=== PATIENT | male | born 1975 | race Caucasian/White ===

== ENCOUNTER 2016-10-08 14:18 | Inpatient (IN) | payer BC, OTHER ==
[2016-10-08] MEDS ORDERED: NS 0.9% 1000 ML* 1,000 ML IV ONE (14:59)
[2016-10-08] MEDS ORDERED: Ondansetron INJ* 2 MG/ML VIAL IV ONE ×2 (14:59→16:40)
[2016-10-08] MEDS ORDERED: Morphine INJ* 4 MG/ML 1 ML CARPUJECT IV ONE ×2 (14:59→16:40)
[2016-10-08 15:14] LABS: Hematocrit 54 % (42-52); Hemoglobin 18.9 g/dl (14.0-18.0); Mean Corpuscular HGB Conc 35 g/dl (31-36); Mean Corpuscular Hemoglobin 31 pg (27-31); Mean Corpuscular Volume 89 fL (80-94); Mean Platelet Volume 8 um3 (7.4-10.4); Red Blood Count 6.08 10^6/ul (4.0-5.4); Red Cell Distribution Width 13 % (10.5-15); White Blood Count 20.5 10^3/ul (3.5-10.8)
[2016-10-08 15:15] LABS: Add Diff/Slide Review? Slide Review Added; Comments Flag Yes
[2016-10-08 15:28] LABS: Albumin 4.9 g/dL (3.2-5.2); C Reactive Protein 2.18 mg/L (< 5.00); Calcium 9.7 mg/dL (8.6-10.3); EGFR African American 76.2 (>60); EGFR Non-African American 59.3 (>60); Globulin 3.4 g/dL (2-4); Magnesium 1.7 mg/dL (1.9-2.7); Potassium 4.8 mmol/L (3.5-5.0); Total Bilirubin 0.9 mg/dL (0.2-1.0); Total Protein 8.3 g/dL (6.4-8.9)
[2016-10-08] MEDS ORDERED: Magnesium Oxide TAB* 400 MG PO ONE (15:35)
--- NOTE | 2016-10-08 15:47 | RAD ---
INDICATION: Abdominal pain. Fever. Chills. COMPARISON: None TECHNIQUE: Erect and supine views of the abdomen are submitted. FINDINGS: Bones: There are no acute bony findings. Soft tissues: The soft tissues appear normal. The psoas margins are sharp. Bowel gas pattern: Normal Calcifications: There are no abnormal calcifications. Other: None IMPRESSION: NO ACUTE DIAGNOSTIC FINDINGS.
[2016-10-08 16:02] LABS: Immature Granulocytes 12 % (0-9); Neutrophil % 83 % (38-83); Reactive Lymph % 2 % (0-6)
[2016-10-08 16:03] LABS: RBC Morphology Normal (Normal)
[2016-10-08] MEDS ORDERED: Iodixanol* (CONTRAST) 320 MG/ML 100 ML SDV IV ONE (16:15)
[2016-10-08] MEDS ORDERED: Acetaminophen TAB* 325 MG PO PRN (16:17)
[2016-10-08] MEDS ORDERED: NS 0.9% 1000 ML* 2,000 ML IV ONE ×2 (16:17→16:40)
[2016-10-08] MEDS ORDERED: Ondansetron INJ* 2 MG/ML VIAL ONE (16:20)
[2016-10-08] MEDS ORDERED: Morphine INJ* 4 MG/ML 1 ML CARPUJECT ONE (16:20)
[2016-10-08] MEDS: Ondansetron INJ* 2 MG/ML VIAL IV PRN ×2 (16:24→22:02)
--- NOTE | 2016-10-08 17:05 | RAD ---
INDICATION: Abdominal pain. COMPARISON: Comparison is made with an abdominal series of the same date. TECHNIQUE: A CT scan of the abdomen and pelvis was performed with intravenous and without oral contrast following intravenous injection of 94 ml of Visipaque 320 nonionic contrast. Contiguous axial sections were obtained from the lung bases through the symphysis pubis. Images were reconstructed in the coronal and sagittal planes. FINDINGS: There is mild dependent bilateral lower lobe subsegmental atelectasis. No pleural effusion is present. The liver and spleen are within normal limits in size without significant focal abnormality. No calcified gallstones are seen. The pancreas appears to be within normal limits in size. The kidneys and adrenal glands are normal in size. No hydronephrosis is seen. No significant focal renal abnormality is seen. The aorta is normal in caliber and demonstrates homogeneous contrast opacification. No significant enlarged retroperitoneal lymph nodes are seen. The stomach, small and large bowel appear nondistended. The appendix is not visualized. There is no evidence for diverticulitis or colitis. No free intraperitoneal air or fluid is seen. No significant focal osseous abnormality is seen. IMPRESSION: NO EVIDENCE FOR ACUTE FINDING OR CAUSE FOR THE PATIENT'S ABDOMINAL PAIN IS SEEN.
[2016-10-08] MEDS ORDERED: Morphine INJ* 4 MG/ML 1 ML CARPUJECT IV PRN (17:16)
--- NOTE | 2016-10-08 17:16 | ED ---
Rishi Stephens Billy, scribed for Kenyon Pryor MD on 10/08/16 at 1526 . Abdominal Pain/Male - HPI Summary HPI Summary: Patient is a 41 year-old male coming to [facility] presenting with constant abdominal cramping since 0830 this morning. Severity 06/16. He reports chills, N /V/D, chest pain, and diffuse myalgia. Nothing makes his symptoms better/worse. 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 Denies recent illness or antibiotics. - History of Current Complaint Chief Complaint: EDAbdPain Stated Complaint: CHEST PAIN Time Seen by Provider: 10/08/16 14:56 Hx Obtained From: Patient Onset/Duration: Gradual Onset, Lasting Hours, Still Present Timing: Constant Severity Initially: Moderate Severity Currently: Moderate Pain Intensity: 10 Pain Scale Used: 0-10 Numeric Radiates: No Character: Cramping Aggravating Factor(s): Nothing Alleviating Factor(s): Nothing Associated Signs And Symptoms: Positive: Chest Pain, Nausea, Vomiting, Diarrhea , Other - chills, myalgia. Negative: Fever - Allergies/Home Medications Allergies/Adverse Reactions: Allergies Allergy/AdvReac Type Severity Reaction Status Date / Time Penicillins Allergy Mild Rash Verified 11/11/14 20:48 Codeine AdvReac Mild GI Upset Verified 11/11/14 20:48 opiates Allergy GI Upset Uncoded 11/11/14 20:50 Home Medications: Home Medications Citalopram TAB* [CeleXA TAB*] 10 mg PO DAILY 10/08/16 [History Confirmed ] PMH/Surg Hx/FS Hx/Imm Hx Endocrine/Hematology History: Denies: Hx Diabetes Cardiovascular History: Denies: Hx Hypertension, Hx Pacemaker/ICD History: Denies: Hx Dialysis, Hx Renal Disease Musculoskeletal History: Reports: Hx Tendonitis - RT SHOULDER IN PAST AND R ELBOW Sensory History: Reports: Hx Contacts or Glasses - INST GLASSES DAY OF RO Denies: Hx Hearing Aid Opthamlomology History: Reports: Hx Contacts or Glasses - INST GLASSES DAY OF RO Neurological History: Reports: Hx Headaches - MORE RECENT FROM ACCIDENT, Hx Migraine - HEADACHE DAILY MIGRAINES ONCE A MONTH Psychiatric History: Reports: Hx Depression - OK W/O MEDS Denies: Hx Panic Disorder - Surgical History Surgery Procedure, Year, and Place: 1989 PITUTARY TUMOR REMOVED [place],1992 APPY [id number] - 4 RIGHT- 1 LEFT KNEE SURGERIES [facility] [place], 1999 TONSILECTOMY [place], 2010 RT SHOULDER [facility] [place],2010 UTERINE ABLATION, [id number] HYSTERECTOMY AND OOPHARECTOMY [facility], 2012 RT CARPAL TUNNEL Hx Anesthesia Reactions: Yes - NAUSEA HAD HAD IV MEDS AND PATCH WITH SUCCESS Infectious Disease History: No Infectious Disease History: Denies: Traveled Outside the [place] in Last 30 Days - Family History Known Family History: Positive: Other - cancer - Social History Alcohol Use: Occasionally Substance Use Type: Reports: None Smoking Status (MU): Former Smoker Review of Systems Positive: Chills. Negative: Fever Positive: Chest Pain Positive: Abdominal Pain, Vomiting, Diarrhea, Nausea Positive: Myalgia All Other Systems Reviewed And Are Negative: Yes Physical Exam Triage Information Reviewed: Yes Vital Signs On Initial Exam: Initial Vitals Temp Pulse Resp BP Pulse Ox 98.4 F 125 28 130/107 100 10/08/16 14:23 10/08/16 14:23 10/08/16 14:23 10/08/16 14:23 10/08/16 14:23 Vital Signs Reviewed: Yes - Erik Coma Scale Coma Scale Total: 15 Diagnostics - Vital Signs Vital Signs Temp Pulse Resp BP Pulse Ox 10/08/16 14:23 98.4 F 125 28 130/107 100 - Laboratory Lab Results: Lab Results 10/08/16 10/08/16 10/08/16 Range/Units 14:53 14:53 14:53 WBC 20.5 H (3.5-10.8) 10^3/ul RBC 6.08 H (4.0-5.4) 10^6/ul Hgb 18.9 H (14.0-18.0) g/dl Hct 54 H (42-52) % MCV 89 (80-94) fL MCH 31 (27-31) pg MCHC 35 (31-36) g/dl RDW 13 (10.5-15) % Plt Count 313 (150-450) 10^3/ul MPV 8 (7.4-10.4) um3 Immature Gran % (Auto) 12 H (0-9) % Neut % (Auto) 94.8 H (38-83) % Lymph % (Auto) 1.8 L (25-47) % [place] % (Auto) 2.9 (1-9) % Eos % (Auto) 0.3 (0-6) % Baso % (Auto) 0.2 (0-2) % Absolute Neuts (auto) 19.4 H (1.5-7.7) 10^3/ul Absolute Lymphs (auto) 0.4 L (1.0-4.8) 10^3/ul Absolute Monos (auto) 0.6 (0-0.8) 10^3/ul Absolute Eos (auto) 0.1 (0-0.6) 10^3/ul Absolute Basos (auto) 0 (0-0.2) 10^3/ul Absolute Nucleated RBC 0.01 10^3/ul Neutrophils % 83 (38-83) % Band Neutrophils % 12 H (0-8) % Lymphocytes % 2 L (25-47) % Reactive Lymphs % 2 (0-6) % Monocytes % 1 (0-13) % Nucleated RBC % 0 Normal RBC Morphology Normal (Normal) Sodium 136 (133-145) mmol/L Potassium 4.8 (3.5-5.0) mmol/L Chloride 100 L (101-111) mmol/L Carbon Dioxide 28 (22-32) mmol/L Anion Gap 8 (2-11) mmol/L BUN 20 (6-24) mg/dL Creatinine 1.33 H (0.67-1.17) mg/dL Est GFR ( Amer) 76.2 (>60) Est GFR (Non-Af Amer) 59.3 (>60) BUN/Creatinine Ratio 15.0 (8-20) Glucose 146 H (70-100) mg/dL Lactic Acid 2.2 H* (0.5-2.0) mmol/L Calcium 9.7 (8.6-10.3) mg/dL Magnesium 1.7 L (1.9-2.7) mg/dL Total Bilirubin 0.90 (0.2-1.0) mg/dL AST 25 (13-39) U/L ALT 23 (7-52) U/L Alkaline Phosphatase 55 (34-104) U/L C-Reactive Protein 2.18 (< 5.00) mg/L Total Protein 8.3 (6.4-8.9) g/dL Albumin 4.9 (3.2-5.2) g/dL Globulin 3.4 (2-4) g/dL Albumin/Globulin Ratio 1.4 (1-3) Amylase 37 (29-103) U/L Lipase 32 (11.0-82.0) U/L Result Diagrams: 10/08/16 14:53 10/08/16 14:53 Lab Statement: Any lab studies that have been ordered have been reviewed, and results considered in the medical decision making process. - Radiology abd xr Xray Interpretation: No Acute Changes Radiology Interpretation Completed By: Radiologist - EKG 1417 EKG Interpretation: sinus tachy 125 bpm, no ST elevation Abdominal Pain Fem Course/Dx - Course Assessment/Plan: Patient is a 41 year-old male coming to [facility] presenting with constant abdominal cramping since 0830 this morning. Severity 06/16. He reports chills, N/V/D, chest pain, and diffuse myalgia. Nothing makes his symptoms better/worse. 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 Denies recent illness or antibiotics. Blood worh shows WBCs 20.5 slightly increased H/H, increase creatinine of 1.33 , glucose 146 and lactic acid of 2.2. Initially patient in distress secondary to the above symptoms. He was started in IV fluids, Morphine for pain and Zofran for nausea. Patient was given additional 2 L of IV fluids since he became hypotensive. C diff is negative but fecal leukocytes are positive. I decide to do an Abdominal and pelvic CT since patient still w/ diffuse abdominal pain. Impression: NO EVIDENCE FOR ACUTE FINDING OR CAUSE FOR THE PATIENT'S ABDOMINAL PAIN IS. SEEN. I discuss my physical exam, findings and test results with Dr. Jay from the hospitalist services and she agrees to admit patient to his services. Patient is e alert and oriented x 3. hospitalist place patient in Cefepine and Flagyl. I also order a second IV access. Patient reports feeiling better. - Diagnoses Differential Diagnosis/HQI/PQRI: Constipation, Diverticulitis, Ischemic Bowel, Peptic Ulcer Disease Provider Diagnoses: Abdominal pain, Nausea vomiting and diarrhea - Provider Notifications Discussed Care Of Patient With: Dr. Jay (hospitalist) @ 0127: accepts admission. Dr. Ortiz (radiology) @ 2482: CT abd/pel reviewed and discussed. Discharge - Discharge Plan Condition: Stable Disposition: ADMITTED TO [facility] The documentation as recorded by the Rishi hernandez Billy accurately reflects the service I personally performed and the decisions made by me, Kenyon Pryor MD.
[2016-10-08] MEDS ORDERED: NS 0.9% 50 ML* 50 ML ONE (17:34)
[2016-10-08 17:57] LABS: Urine Bacteria Absent (Absent); Urine Bilirubin Negative (Negative); Urine Glucose Negative (Negative); Urine Nitrite Negative (Negative)
[2016-10-08] MEDS ORDERED: Cefepime(*) 2 GM in NS 0.9% 50 ML* 50 ML IVPB SCH (18:00)
--- NOTE | 2016-10-08 18:27 | RAD ---
INDICATION: Sepsis. COMPARISON: There is is made with a prior chest x-ray study from December 28, 2013. TECHNIQUE: A portable view of the chest was obtained. FINDINGS: Cardiac and mediastinal contours appear to be within normal limits. The lungs are clear. No pleural effusion is seen. IMPRESSION: NO EVIDENCE FOR ACUTE DISEASE.
[2016-10-08] MEDS: Pantoprazole IV* 40 MG IV SCH (18:35)
[2016-10-08] MEDS: NS 0.9% 1000 ML* 3,000 ML IV ONE ×4 (18:42→19:58)
[2016-10-08] MEDS: PROCHLORPERAZINE INJ 5 MG/ML 2 ML VIAL IV PRN (19:48)
[2016-10-08] MEDS: Cefepime(*) 2 GM in NS 0.9% 50 ML* 50 ML IVPB SCH (19:53)
[2016-10-08] MEDS: metroNIDAZOLE IV 500 MG/100ML* 500 MG/100 ML BAG IVPB SCH (20:56)
--- NOTE | 2016-10-08 21:08 | HP ---
HISTORY AND PHYSICAL: DATE OF ADMISSION: 10/08/16 PRIMARY CARE PROVIDER: Angelica Pichardo MD. ATTENDING PHYSICIAN WHILE IN THE HOSPITAL: Oziel Jay MD * (report dictated by Emiliano Milligan NP). CONSULTING SURGEON: Dr. Phoenix. CHIEF COMPLAINT: 1. Nausea. 2. Diarrhea. 3. Abdominal discomfort. HISTORY OF PRESENT ILLNESS: Mr. Alarcon is a 41-year-old male patient. He comes in to the ER today stating that last night around the evening he developed some nausea, vomiting and some diarrhea, denied any blood in the vomit and denied having any blood in the diarrhea. He says that he does not take NSAIDs or any aspirin or ibuprofen. He states that he started noticing that he was having abdominal discomfort mostly generalized, starting in the lower abdomen and going right up into his chest. He says that he has been having some chills off and on. He denies any recent sick contacts. He said he did have some chest discomfort when the pain radiated up into his chest. He does state that he has been feeling short of breath more than the normal. He says that he feels bloated to himself. He says the pain was not getting any better, so he decided to come into the ER. He denies any documented fevers. He states that he has not had an appetite and has not eaten since last night or had anything to drink. He states that prior to this, he had been feeling well. He came into the ER, he was evaluated. It was noted that he was tachypneic, he is tachycardic. In addition to this, he had a white cell count of 20,000 and bandemia and the hospitalist service was asked to evaluate for admission. PAST MEDICAL HISTORY: Significant for: 1. Tension headaches. 2. Pituitary adenoma. PAST SURGICAL HISTORY: 1. He has had a pituitary tumor resection. 2. Appendectomy. 3. Tonsillectomy. 4. Right shoulder surgery. 5. Right knee surgery. 6. Carpal tunnel. 7. Hysterectomy. 8. Chest reconstruction. HOME MEDICATIONS: According to him include: 1. Testosterone 100 mg IM Thursday. 2. Celexa 10 mg daily. 3. Elavil 50 mg p.o. daily. ALLERGIES TO MEDICATIONS: Include: 1. PENICILLIN. 2. CODEINE. FAMILY HISTORY: His mother has a history of tachycardia. Father has a history of hepatitis C. SOCIAL HISTORY: He does vaporize daily. He drinks occasionally. Denies any drug use. Surrogate decision maker is his mom. REVIEW OF SYSTEMS: There is a documented fever here, it is now 102. He denied having any significant weight change. There was no double vision. There is no ear discharge. He denies having any rhinorrhea. No sore throat. No thyroid enlargement. Denies any chest pain currently. He does admit to having shortness of breath particularly with exertion. There is abdominal discomfort per my HPI. There was nausea, vomiting, and diarrhea. No dysuria. No frequency. No loss of consciousness. No pruritus. No skin ulcerations. Review of 14 systems completed, all others negative. PHYSICAL EXAMINATION GENERAL: At this time, Mr. Alarcon is a 41-year-old male patient. He does appear to be in a mild to moderate amount of distress. He is awake and he is alert. VITAL SIGNS: Initially when he came in, blood pressure 133/97 with a pulse of 124, respirations were 28, O2 sat was 100%, and temperature 98.4. His temperature now is 102. His blood pressure did go down to 96/71, but after fluids it did come up to the 120 systolic range and his heart rate is still in the 120's. HEENT: Head: Atraumatic and normocephalic. Eyes: EOMs intact. Sclerae are anicteric and not pale. Throat: Oral mucosa appears to be dry. No oropharyngeal erythema. NECK: Supple. LUNGS: Clear to auscultation bilaterally. No wheezes, rales, or rhonchi. HEART: Sounds S1, S2. He is tachycardic. No murmurs, rubs, or gallops. ABDOMEN: Soft. He is tender in the left upper quadrant and the epigastric area. When he goes to sit up in the bed, it does elicit a significant amount of diffuse pain. He has no guarding. EXTREMITIES: Pulses are 2+ throughout. He is able to move all 4 extremities with 5/5 strength. NEUROLOGIC: The patient is awake, he is alert, and he is oriented x3. Tongue midline. Head Batcher are equal. He had no gross focal deficits. SKIN: Grossly intact. LABORATORY DATA AND DIAGNOSTIC STUDIES: Today revealed a WBC of 20.5, RBC of 6.08, hemoglobin 18.9, hematocrit 54, platelet count 313. His sodium was 136, potassium 4.8, chloride 100, bicarb 28, BUN 20, creatinine 1.33. His glucose was 146. His lactic was 2.2, calcium 9.7, magnesium 1.7. AST 25, ALT 23, CRP at 2.18. He had an abdominal pelvis CT scan, which showed no evidence of acute finding or cause of the patient's abdominal pain was seen. Abdominal x-ray showed no acute diagnostic findings. He had an EKG obtained today, which showed a sinus tachycardia, rate of 125, no ST elevation or T-wave inversions. Old medical records were reviewed. ASSESSMENT AND PLAN: Mr. Alarcon is a 41-year-old male patient coming into the ER today with complaints of abdominal discomfort. On evaluation here, he was found to have bandemia, leukocytosis, febrile, tachycardic, and mildly tachypneic. He will be admitted under inpatient status for: 1. Sepsis: Etiology of this is unclear. Again, the abdominal pain is concerning. I did touch base with our surgeon despite the negative CT scan, because he does have bandemia. His lactic acid is up a little bit. Minimally, he is going to require 4 to 5 L of fluid wide open and then normal saline at 150 an hour for the time being. I think he does appear to be profoundly dry. He is hemoconcentrated. This may be a viral gastroenteritis, but he does have a significant immune response for this, which is surprising. I did place him on cefepime and I also placed him on vancomycin. We are panculturing the patient. Currently, we are able to give him medications for pain and I did think because of the abdominal discomfort and the lab findings, I did feel that a surgical evaluation was appropriate for the patient and Dr. Phoenix will be evaluating. 2. Abdominal pain: Again, etiology unclear. Certainly, it could be viral gastroenteritis, but other etiologies need to be considered and again, we will have him evaluated by Surgery. 3. History of tension headaches: Continue medications as prescribed. 4. History of pituitary adenoma: Continue medications as prescribed. 5. Transgender: At this point, the patient is on testosterone injections weekly. I will hold these for now and will continue to follow. 6. DVT prophylaxis: He is moderate risk. He will be placed on heparin subcu. 7. Code status: Full code. 8. Fluids, electrolytes, and nutrition: He is n.p.o. pending surgical evaluation. TIME SPENT: Time spent on the admission was 60 minutes; greater than half the time was spent [id number] with the patient obtaining my history and physical, other half of the time spent going over the plan of care with the patient and implementing plan of care. I did discuss the plan of care with my attending, Dr. Jay, he is in agreement. EMILIANO MILLIGAN NP CC: Dr. Phoenix; Angelica Pichardo MD * [id number]/[facility] #: [id number] MTDRohit
--- NOTE | 2016-10-08 21:24 | CONS ---
SURGICAL CONSULTATION REPORT: DATE OF CONSULT: 10/08/16 HISTORY OF PRESENT ILLNESS: I was contacted by the hospitalist service to evaluate Mr. Alarcon, a 41-year-old transgender gentleman, who presents to the emergency room with acute onset of upper abdominal pain starting about 8 o' clock this morning. This is accompanied with nausea and vomiting and retching along with diarrhea. The patient denies any sick contacts. He lives alone. 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 The patient denies any previous similar symptoms. He has decreased appetite. He is thirsty. Pain is mostly in upper abdomen, it radiates to the chest, alleviated with narcotics. No aggravating factors. PAST MEDICAL HISTORY: Anxiety. PAST SURGICAL HISTORY: Total hysterectomy as well as open appendectomy and bilateral breast reduction. The patient has been transitioning since approximately 2012. MEDICATIONS: Include: 1. Testosterone. 2. Celexa. 3. Elavil. ALLERGIES: List reviewed. SOCIAL HISTORY: He is a nonsmoker but does vape. PHYSICAL EXAM: He is afebrile. He has been consistently tachycardic in the 120 's. Blood pressure with a mean arterial pressure in the 70's. Last blood pressure count was 96/71 in the computer, he is in the 115 systolic when I visited with him. He is on room air satting in the high 90's. Respiration rate in the teens. He is alert and oriented x3. He is in no apparent distress. Head, ears, eyes, nose, and throat: Normocephalic and atraumatic. Sclerae anicteric. Mucous membranes are dry. Neck: No lymphadenopathy. Abdomen is tender diffusely without rebound. No masses or hernia noted. No CVA tenderness. Rectal exam not performed. DIAGNOSTIC STUDIES/LAB DATA: Labs reviewed showed a white count of 20 with an H and H of 19/54. Creatinine 1.33, which is above his baseline, which exists around 1.1. Transaminases are within normal limits as well as lipase. The patient underwent an abdominal and pelvis CT scan with IV contrast only. These are very good images and I have reviewed them as well as the radiology report. There is no free air. No free fluid. The small and large bowel showed normal appearance. Upon further discussion, the patient described that he does have GERD-like symptoms and he sometimes will take [id number] medications for this. That pain will also extend superiorly, but this is much worse. IMPRESSION: Abdominal pain of unclear etiology. No evidence of acute abdomen despite lab abnormalities and vital signs. My impression is watchful waiting, serial abdominal exams, n.p.o. status except water along with IV free fluids and significant hydration. The patient does represent a difficult case with his steroid use and may be immunocompromised because of this but we will follow him closely and I do not feel that he warrants a trip to the operating room at this time. We will follow closely upon admission. CC: [facility]; Angelica Pichardo MD* [id number]/[facility] #: [id number] DANIEL
[2016-10-08] MEDS: Heparin VIAL(*) 5000 UNITS/ML VIAL (FIVE THOUSAND) SUBCUT SCH (21:49)
[2016-10-08] MEDS: NS 0.9% 1000 ML* 1,000 ML IV SCH (21:50)
[2016-10-08] MEDS: Morphine INJ* 4 MG/ML 1 ML CARPUJECT IV PRN (22:02)
[2016-10-09] MEDS: Morphine INJ* 4 MG/ML 1 ML CARPUJECT IV PRN ×2 (02:30→07:33)
[2016-10-09] MEDS: Ondansetron INJ* 2 MG/ML VIAL IV PRN ×2 (03:52→10:48)
[2016-10-09] MEDS: metroNIDAZOLE IV 500 MG/100ML* 500 MG/100 ML BAG IVPB SCH ×3 (04:14→19:45)
[2016-10-09] MEDS: NS 0.9% 1000 ML* 1,000 ML IV SCH ×2 (04:52→15:26)
[2016-10-09] MEDS: Cefepime(*) 2 GM in NS 0.9% 50 ML* 50 ML IVPB SCH ×2 (06:13→18:19)
[2016-10-09] MEDS: Heparin VIAL(*) 5000 UNITS/ML VIAL (FIVE THOUSAND) SUBCUT SCH ×3 (06:14→22:28)
[2016-10-09] MEDS: PROCHLORPERAZINE INJ 5 MG/ML 2 ML VIAL IV PRN ×2 (07:33→17:26)
[2016-10-09 07:34] LABS: Hematocrit 40 % (42-52); Mean Corpuscular HGB Conc 35 g/dl (31-36); Mean Corpuscular Hemoglobin 32 pg (27-31); Mean Corpuscular Volume 90 fL (80-94); Mean Platelet Volume 8 um3 (7.4-10.4); Red Blood Count 4.42 10^6/ul (4.0-5.4); Red Cell Distribution Width 12 % (10.5-15); White Blood Count 8.5 10^3/ul (3.5-10.8)
[2016-10-09 07:58] LABS: Albumin 3.2 g/dL (3.2-5.2); BUN/Creatinine Ratio 12.8 (8-20); EGFR African American 113.7 (>60); EGFR Non-African American 88.4 (>60); Globulin 2.2 g/dL (2-4); Potassium 3.9 mmol/L (3.5-5.0); Total Bilirubin 0.6 mg/dL (0.2-1.0); Total Protein 5.4 g/dL (6.4-8.9)
[2016-10-09 08:10] LABS: Calcium 6.4 mg/dL (8.6-10.3)
[2016-10-09] MEDS ORDERED: Calcium Gluconate INJ* 2 GM in NS 0.9% 100 ML* 100 ML IV ONE (08:43)
--- NOTE | 2016-10-09 09:13 | PN ---
Subjective Date of Service: 10/09/16 Interval History: Patient seen this morning. Says overall he feels that he is improving. No further N/V. Diarrhea still present but has slowed considerably (2x this morning ). Still with some abdominal which he states is mostly crampy and in the epigastric area. Has been tolerating sips of water and ice. Family History: Unchanged from Admission Social History: Unchanged from Admission Past Medical History: Unchanged from Admission Objective Active Medications: Acetaminophen (Tylenol Tab*) 650 mg PO Q4H PRN Heparin Sodium (Porcine) (Heparin Vial(*)) 5,000 units SUBCUT Q8HR FRANCES Metronidazole/Sodium Chloride (Flagyl 500 Mg Ivpb*) 500 mg in 100 mls @ 100 mls /hr IVPB Q8H FRANCES Cefepime HCl 2 gm/ Sodium (Chloride) 50 mls @ 100 mls/hr IVPB Q12H FRANCES Sodium Chloride (Ns 0.9% 1000 Ml*) 1,000 mls @ 150 mls/hr IV PER RATE FRANCES Calcium Gluconate 2 gm/ Sodium (Chloride) 120 mls @ 120 mls/hr IV ONCE ONE Morphine Sulfate (Morphine Inj (Syringe)*) 2 mg IV Q2H PRN Ondansetron HCl (Zofran Inj*) 4 mg IV Q4H PRN Pantoprazole Sodium (Protonix Iv*) 40 mg IV Q24H FRANCES Prochlorperazine Edisylate (Compazine Inj*) 5 mg IV Q6H PRN Vital Signs 10/08/16 10/08/16 10/08/16 16:20 17:02 18:06 Temperature 102 F Pulse Rate 121 126 Respiratory 28 19 19 Rate Blood Pressure 130/46 (mmHg) O2 Sat by Pulse 97 Oximetry 10/08/16 10/08/16 10/08/16 18:35 18:46 19:13 Temperature 100.7 F Pulse Rate 135 Respiratory 16 20 20 Rate Blood Pressure 122/62 (mmHg) O2 Sat by Pulse 98 Oximetry 10/08/16 10/08/16 10/08/16 21:44 21:45 22:02 Temperature 98.5 F 98.5 F Pulse Rate 119 116 Respiratory 18 Rate Blood Pressure (mmHg) O2 Sat by Pulse 97 99 Oximetry 10/08/16 10/08/16 10/09/16 23:02 23:40 02:30 Temperature 98.5 F Pulse Rate 108 Respiratory 20 16 18 Rate Blood Pressure 108/48 (mmHg) O2 Sat by Pulse 97 Oximetry 10/09/16 10/09/16 07:35 07:55 Temperature 98.1 F Pulse Rate 98 Respiratory 16 16 Rate Blood Pressure 119/66 (mmHg) O2 Sat by Pulse 98 Oximetry Oxygen Devices in Use Now: None Appearance: Middle-aged, transgender M, laying in bed in NAD Eyes: No Scleral Icterus Ears/Nose/Mouth/Throat: - - Dry MM Neck: NL Appearance and Movements; NL JVP Respiratory: Symmetrical Chest Expansion and Respiratory Effort, Clear to Auscultation Cardiovascular: NL Sounds; No Murmurs; No JVD, RRR Abdominal: - - Soft, non-distended, mild TTP in epigastric area, BS+ Lymphatic: No Cervical Adenopathy Extremities: No Edema Skin: No Rash or Ulcers Neurological: Alert and Oriented x 3 Result Diagrams: 10/09/16 06:52 10/09/16 06:52 Additional Lab and Data: Microbiology and Other Data: Microbiology 10/08/16 17:18 Influenza Types A,B Antigen (NEHA) - Final Nasal Specimen received for Influenza A/B Molecular testing Assess/Plan/Problems-Billing Assessment: Abdominal pain, N/V/D in a 41 yo transgender F->M with hx of tension headaches and pituitary adenoma - Patient Problems (1) Abdominal pain Current Visit: Yes Comment: N/V/D. Improving. Leukocytosis and tachycardia resolved with IVF resuscitation. C diff negative, stool culture pending, positive fecal lactoferrin. Do not feel this is a bacterial infection, will likely d/c ABx, check procalcitnonin. Continue supportive care with IVF, analgesia, antiemetics. Epigastric discomfort may be exacerbated by GERD, continue IV PPI. Appreciate surgery assistance, no indication for operative management. Will trial clear liquids. (2) Hypocalcemia Current Visit: Yes Comment: Replete (3) DVT prophylaxis Current Visit: Yes Comment: HSQ Status and Disposition: Likely d/c in 24-48 hours
--- NOTE | 2016-10-09 09:14 | PN ---
Progress Note - Progress Note SOAP: Subjective: pt seen and examined. Feeling better today, but still with upper abdo pain. No appetite. Pos. diarrhea. Objective: af vss abdo: softer today/ND/ tender at epigastrum. labs noted medications reviewed. Cse d/w hospitalist Assessment: Abdo pain, improving Likely gastroenteritis Plan: IVF PPI abx as per hospitalist advance diet as tolerated recall Surg. prn.
[2016-10-09] MEDS ORDERED: NS 0.9% 100 ML* 100 ML ONE (09:21)
[2016-10-09] MEDS: Amitriptyline TAB* 50 MG PO SCH (10:49)
[2016-10-09] MEDS: Citalopram TAB* 10 MG PO SCH (10:49)
[2016-10-09] MEDS: Morphine INJ* 2 MG/ML 1 ML CARPUJECT IV PRN ×5 (12:51→22:25)
[2016-10-09] MEDS: Pantoprazole IV* 40 MG IV SCH (18:19)
--- NOTE | 2016-10-09 19:33 | RAD ---
INDICATION: Abdominal pain, no flatus. COMPARISON: Comparison is made with prior CT of the abdomen and pelvis and abdominal series from October 08, 2016. TECHNIQUE: Frontal supine films of the abdomen were obtained. FINDINGS: The small bowel and colon appear nondistended. No significant abnormal calcifications are seen. IMPRESSION: NO EVIDENCE FOR OBSTRUCTION.
[2016-10-09] MEDS ORDERED: NS 0.9% 1000 ML* 1,000 ML IV SCH (20:14)
[2016-10-10] MEDS: Ondansetron INJ* 2 MG/ML VIAL IV PRN (02:11)
[2016-10-10] MEDS: Morphine INJ* 2 MG/ML 1 ML CARPUJECT IV PRN (02:12)
[2016-10-10] MEDS: metroNIDAZOLE IV 500 MG/100ML* 500 MG/100 ML BAG IVPB SCH ×2 (04:21→12:16)
[2016-10-10] MEDS: Heparin VIAL(*) 5000 UNITS/ML VIAL (FIVE THOUSAND) SUBCUT SCH ×2 (06:14→14:18)
[2016-10-10] MEDS: Cefepime(*) 2 GM in NS 0.9% 50 ML* 50 ML IVPB SCH (06:14)
[2016-10-10 07:01] LABS: Hematocrit 40 % (42-52); Hemoglobin 13.9 g/dl (14.0-18.0); Mean Corpuscular HGB Conc 35 g/dl (31-36); Mean Corpuscular Hemoglobin 31 pg (27-31); Mean Corpuscular Volume 91 fL (80-94); Mean Platelet Volume 8 um3 (7.4-10.4); Red Blood Count 4.42 10^6/ul (4.0-5.4); Red Cell Distribution Width 13 % (10.5-15); White Blood Count 9.4 10^3/ul (3.5-10.8)
[2016-10-10 07:16] LABS: BUN/Creatinine Ratio 8.1 (8-20); Calcium 7.6 mg/dL (8.6-10.3); Potassium 3.7 mmol/L (3.5-5.0)
[2016-10-10] MEDS: Citalopram TAB* 10 MG PO SCH (08:43)
[2016-10-10] MEDS: Amitriptyline TAB* 50 MG PO SCH (08:43)
[2016-10-10] MEDS ORDERED: Calcium Gluconate INJ* 2 GM in NS 0.9% 100 ML* 100 ML IV ONE (14:00)
[2016-10-10 15:33] VITALS: BP 138/80
--- NOTE | 2016-10-10 16:16 | DCNOTE ---
Patient seen early PM. Says he is feeling much improved today. No N/V. One BM this morning, becoming more formed. Tolerated clears and then full liquids. Anxious to discharge. On exam, RRR, s1 and s2 present, no m/g/r, abd soft, non-distended, mild TTP in epigastric area D/C home today on continued liquids/soft foods for now. Will continue PPI. Outpatient PCP f/u
--- NOTE | 2016-10-11 10:33 | DS ---
DISCHARGE SUMMARY: DATE OF ADMISSION: 10/08/16 DATE OF DISCHARGE: 10/10/16 PRIMARY CARE PHYSICIAN: Angelica Pichardo MD PRINCIPAL DISCHARGE DIAGNOSES: 1. Viral gastroenteritis. 2. Lactic acidosis. 3. Dehydration. SECONDARY DIAGNOSES: 1. Tension headaches. 2. Depression. DISCHARGE MEDICATION REGIMEN: 1. Omeprazole 20 mg by mouth daily. 2. Percocet 5/325 one tablet by mouth every 6 hours as needed for pain. 3. Amitriptyline 50 mg by mouth daily. 4. Citalopram (Celexa) 10 mg by mouth daily. 5. Testosterone 100 mg IM every Thursday. TESTING DONE DURING HOSPITALIZATION: 1. Abdominal x-ray. Impression: No acute diagnostic findings. 2. CT of the abdomen and pelvis with contrast. Impression: No evidence for acute finding or cause for the patient's abdominal pain. 3. Chest x-ray. Impression: No evidence for acute disease. 4. Abdominal x-ray. Impression: No evidence for obstruction. CONSULTANTS DURING HOSPITALIZATION: Dr. Jarett Phoenix of Surgery. HISTORY OF PRESENT ILLNESS AND HOSPITAL SUMMARY: Please see the full history and physical by Emiliano Milligan NP, for full details. Briefly, Mr. Alarcon is a 41-year- old transgender male who presents to the hospital with nausea, vomiting , diarrhea, and abdominal pain. The patient's labs were concerning as he had a significant leukocytosis of 20 with 12% bandemia. He also had a mildly elevated lactic acidosis and evidence of RAHEEM. Due to the patient's significant pain, he underwent a CT scan which was unremarkable. Surgery was consulted and Dr. Jarett Phoenix evaluated the patient and did not feel that there was any surgical intervention needed at this time. He was aggressively fluid resuscitated and the following day had a significant improvement in his labs with resolution of RAHEEM as well as his leukocytosis. He had some hypocalcemia which was repleted. Over the following days, the patient's nausea and vomiting had resolved. His bowel movements became more solidified and decreased in frequency and his abdominal pain was improving. He tolerated a liquid diet and he will be discharged home to follow up with his PCP as an outpatient. He will be continued on a PPI for the short-term. TIME SPENT: Total time spent on this discharge, 45 minutes. This is a summary of the hospitalization, please see the full medical record for further details. CC: Dr. Angelica Pichardo * [id number]/[facility] #: [id number] [facility]ILLSIDE HOSPITALRohit
== END 2016-10-10 17:15 | disposition home or self-care (01) | DRG 249 ==
LOC: ED 14:18 → SSU 16:17
PROVIDERS: ADMIT Internal Medicine; ATTEND Hospitalist
DX: A08.4 Viral intestinal infection, unspecified (principal); N17.9 Acute kidney failure, unspecified; E87.2 Acidosis; E83.51 Hypocalcemia; Z88.0 Allergy status to penicillin; Z88.5 Allergy status to narcotic agent; F32.9 Major depressive disorder, single episode, unspecified; G43.909 Migraine, unspecified, not intractable, without status migrainosus; Z82.49 Family history of ischemic heart disease and other diseases of the circulatory system; G44.209 Tension-type headache, unspecified, not intractable; D35.2 Benign neoplasm of pituitary gland; E86.0 Dehydration; F41.9 Anxiety disorder, unspecified; Z87.891 Personal history of nicotine dependence
CPT/HCPCS: 36415; 71010; 74000; 74020; 74177; 80048; 80053; 81003; 81015; 82150; 83605; 83630; 83690; 83735; 84145; 85025; 85610; 86140; 87040; 87045; 87046; 87086; 87328; 87329; 87493; 87502; 87899; 93005; A9270-GY; J0610; J0692; J0780; J1644; J2270; J2405; J3490; Q9967

== ENCOUNTER 2017-02-16 14:39 | Emergency (ER) | payer BC ==
[2017-02-16 14:51] VITALS: BP 120/76
--- NOTE | 2017-02-16 15:14 | UC ---
Respiratory Complaint HPI - HPI Summary HPI Summary: The patient comes in today for: 1. Cough and chest pain: Onset: Since yesterday AM Palliative/provocative: Coughing makes the chest pain worse. Quality: Sharp when he coughs. He also has a dull ache when he is not coughing. Region: Chest: Severity: 310 Time: Constant. Associated symptoms: Dyspnea: "a little bit." Nausea: None. Previous heart disease: None. CAD risk factors: Age: (-). Smoker: (-). HTN: (-). DM: (-). Previous disease: (-). Stroke: (-). Fm Hx: Uncle 47 [place]. * - History of Current Complaint Chief Complaint: UCRespiratory Stated Complaint: COUGH,ST,CHEST HURTS Time Seen by Provider: 02/16/17 14:43 Hx Obtained From: Patient - Allergies/Home Medications Allergies/Adverse Reactions: Allergies Allergy/AdvReac Type Severity Reaction Status Date / Time Penicillins Allergy Mild Rash Verified 11/11/14 20:48 Codeine AdvReac Mild GI Upset Verified 11/11/14 20:48 opiates Allergy GI Upset Uncoded 11/11/14 20:50 PMH/Surg Hx/FS Hx/Imm Hx Previously Healthy: No - Headaches, hypogonadism. 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,1992 [facility]1994 4 RIGHT- 1 LEFT KNEE SURGERIES [place] 1999 [place] 2010 [place] [facility] [id number] HYSTERECTOMY AND [facility]OM[facility], 2012 RT CARPAL TUNNEL - Family History Known Family History: Positive: Cardiac Disease, Hypertension, Other - cancer - Social History Occupation: Employed Full-time Alcohol Use: Occasionally Substance Use Type: None Smoking Status (MU): Former Smoker Type: eCigarettes - Immunization History Most Recent Influenza Vaccination: 2016 Most Recent Tetanus Shot: within last 10 years Most Recent Pneumonia Vaccination: never Review of Systems Constitutional: Negative Skin: Negative Eyes: Negative ENT: Nasal Discharge - Light green mucous. Respiratory: Cough - Green mucous. Cardiovascular: Chest Pain Gastrointestinal: Negative Genitourinary: Negative All Other Systems Reviewed And Are Negative: Yes Physical Exam Triage Information Reviewed: Yes Appearance: Well-Appearing, No Pain Distress, Well-Nourished Vital Signs: Initial Vital Signs Temp 100.0 F 02/16/17 14:42 Pulse 109 02/16/17 14:42 Resp 18 02/16/17 14:42 BP 120/76 02/16/17 14:42 Pulse Ox 98 02/16/17 14:42 Vital Signs Reviewed: Yes Eyes: Positive: Conjunctiva Clear. Negative: Discharge ENT: Positive: Hearing grossly normal. Negative: Pharyngeal erythema, Nasal congestion, Nasal drainage, TM bulging, TM dull, TM red, Tonsillar swelling, Tonsillar exudate Dental: Negative: Gross Decay/Caries @, Dental Fracture @ Neck: Positive: Supple, Nontender, No Lymphadenopathy. Negative: Nuchal Rigidity Respiratory: Positive: Lungs clear, No respiratory distress, No accessory muscle use, Other: - Pressure along the left sternal border reproduced the dull chest ache that he complained about. He did not want an EKG.. Negative: Crackles, Wheezing Cardiovascular: Positive: RRR, No Murmur Abdomen Description: Positive: Nontender, No Organomegaly, Soft. Negative: Distended Musculoskeletal: Positive: Strength Intact, ROM Intact Neurological: Positive: Alert, Muscle Tone Normal Psychological: Positive: Age Appropriate Behavior, Consolable Skin: Negative: rashes, breakdown UC Diagnostic Evaluation - Laboratory O2 Sat by Pulse Oximetry: 98 Respiratory Course/Dx - Course Course Of Treatment: Patient told of my recommendation for antibiotic and cough medication. He states that he only has nausea with them and not a true allergic reaction. - Differential Dx/Diagnosis Provider Diagnoses: Bronchitis. Sinusitis Discharge - Discharge Plan Condition: Stable Disposition: HOME Patient Education Materials: Sinusitis (ED), Acute Bronchitis (ED) Forms: *Work Release Referrals: Angelica Pichardo MD [Primary Care Provider] - 1 Week (Please see your primary care provider in a week to see how well you are doing. If you get worse, please be seen sooner in the ER or through us.)
== END 2017-02-16 15:41 | disposition home or self-care (01) ==
LOC: UCEAST 14:39
DX: J40 Bronchitis, not specified as acute or chronic (principal); J32.9 Chronic sinusitis, unspecified; Z87.891 Personal history of nicotine dependence
CPT/HCPCS: 99212; G0463